=== PATIENT | male | born 1970 | race Caucasian/White ===

== ENCOUNTER 2018-05-07 18:12 | Emergency (ER) | payer BC ==
[2018-05-07] MEDS ORDERED: IPRATROPIUM/ALBUTEROL (0.5MG/3MG) NEB INH ONE (18:23)
[2018-05-07] MEDS ORDERED: PREDNISONE 20 MG TAB PO ONE (18:23)
--- NOTE | 2018-05-07 18:29 | Emergency Department Record ---
History of Present Illness - General Chief Complaint: Difficulty Breathing Stated Complaint: VANNESA Time Seen by Provider: 05/07/18 18:23 Source: Patient Mode of Arrival: Ambulatory Limitations: No limitations - History of Present Illness Initial Comments: 47 yo male presents to ED for evaluation of diffuse wheezing and shortness of breath symptoms that began approximately 2 months ago. Patient denies previous history of asthma or COPD, denies previous smoking history. Patient does report that he saw a [facility] in [place] who referred him for CT imaging of the chest that was overall normal. Patient reports that he was started on albuterol and Prednsione which improved his symptoms, however they have returned and he is nearly out of his proair. Patient denies fevers, chills, or productive cough symptoms. 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 Patient does wear a respirator mask while at work. MD Complaint: Shortness of breath Onset/Timin -: Month(s) Severity: Moderate Consistency: Intermittent Improves With: Bronchodilators Worsens With: Nothing Associated Symptoms: Denies other symptoms Treatments Prior to Arrival: Bronchodilator - Related Data Home Oxygen Therapy: No Home Medications Medication Instructions Recorded Confirmed Last Taken Albuterol Sulfate [Proair Hfa] 1 - 2 puff IH .EVERY 4-6 HOURS PRN 05/07/1805/07 1 Day Ago ~05/06/18 Previous Rx's Medication Instructions Recorded Albuterol Sulfate [Proair Hfa] 1 - 2 puff IH .EVERY 4-6 HOURS PRN 05/07/18 #1 inhaler Prednisone [Prednisone 20Mg] 20 mg PO TID #12 tab 05/07/18 Allergies Allergy/AdvReac Type Severity Reaction Status Date / Time No Known Drug Allergies Allergy Verified 05/07/18 18:28 Review of Systems Constitutional: Denies: Chills, Fever, Malaise, Night sweats Eyes: Denies: Eye discharge, Eye pain ENT: Denies: Congestion, Ear pain, Epistaxis Respiratory: Reports: Cough, Dyspnea, Wheezes Cardiovascular: Reports: Dyspnea on exertion. Denies: Chest pain, Palpitations Endocrine: Denies: Fatigue, Heat or cold intolerance Gastrointestinal: Denies: Abdominal pain, Nausea, Vomiting Genitourinary: Denies: Incontinence, Retention Musculoskeletal: Denies: Arthralgia, Back pain, Gout, Joint swelling Skin: Denies: Bruising, Change in color Neurological: Denies: Abnormal gait, Confusion, Headache, Tingling, Tremors Psychiatric: Denies: Anxiety Hematological/Lymphatic: Denies: Anemia, Blood Clots Physical Exam - General General Appearance: Alert, Oriented x3, Cooperative, Moderate distress Limitations: No limitations - Head Head exam: Atraumatic, Normocephalic, Normal inspection Head exam detail: negative: Abrasion, Contusion, Betancur's sign, General tenderness, Hematoma, Laceration - Eye Eye exam: Normal appearance. negative: Conjunctival injection, Periorbital swelling, Periorbital tenderness, Scleral icterus - ENT Ear exam: negative: Auricular hematoma, Auricular trauma Nasal Exam: negative: Active bleeding, Discharge, Dried blood, Foreign body Mouth exam: negative: Drooling, Laceration, Muffled voice, Tongue elevation - Neck Neck exam: Normal inspection. negative: Meningismus, Tenderness - Respiratory Respiratory exam: Decreased breath sounds, Prolonged expiratory, Wheezes. negative: Rhonchi, Stridor - Cardiovascular Cardiovascular Exam: Regular rate, Normal rhythm, Normal heart sounds - GI/Abdominal GI/Abdominal exam: Soft. negative: Distended, Rebound, Rigid, Tenderness - Rectal Rectal exam: Deferred - exam: Deferred - Extremities Extremities exam: Normal inspection. negative: Pedal edema, Tenderness - Back Back exam: Denies: CVA tenderness (R), CVA tenderness (L) - Neurological Neurological exam: Alert, Normal gait, Oriented X3 - Psychiatric Psychiatric exam: Normal affect, Normal mood - Skin Skin exam: negative: Abrasion Type of lesion: negative: abrasion Course Reviewed previous CT imaging of the chest from 03/16/18: Mild bronchial thickening No infiltrates 3 mm sub-pleural nodule - Reevaluation(s) Reevaluation #1: 05/07/18 18:45 Patient was reassessed following duoneb administration, symptoms are greatly improved. Will administer albuterol nebulized treatment and reassess. Reevaluation #2: 05/07/18 19:17 Patient was re-evaluated, reports that he is breathing symptoms are greatly improved. Will provide Rx for inhaler as well as prednisone for 5 days. Will also provide a referral for top polisher for further evaluation. Patient agrees with the plan of care as discussed. Disposition Disposition: Discharge Clinical Impression: Bronchospasm Disposition: Home, Self-Care Condition: (2) Stable Instructions: Bronchospasm (ED) Additional Instructions: Return to ED if your symptoms worsen or if you have any concerns. Prednisone and Pro-air as directed. Follow-up with in 5-7 days as directed. Prescriptions: Albuterol Sulfate [Proair Hfa] 1 - 2 puff IH .EVERY 4-6 HOURS PRN #1 inhaler PRN Reason: Difficulty In Breathing Prednisone [Prednisone 20Mg] 20 mg PO TID #12 tab Referrals: CLARITA SHARPE [MEDICAL DOCTOR] - Forms: Patient Portal Access Time of Disposition: 19:19 Quality - Quality Measures Quality Measures: N/A - Blood Pressure Screening Does Patient Have Any of the Following: No Blood Pressure Classification: Hypertensive Reading Systolic Measurement: 121 Diastolic Measurement: 97 Screening for High Blood Pressure: < First Hypertensive BP, F/U Documented > [ G8950] First Hypertensive Follow-up Interventions: Referral to alternative/primary care provider.
[2018-05-07] MEDS ORDERED: ALBUTEROL SULFATE (0.083%) 2.5 MG/3 ML NEB INH ONE (18:45)
[2018-05-07] MEDS ORDERED: ALBUTEROL HFA 8 GM INHALER INH PRN (19:21)
== END 2018-05-07 19:24 | disposition home or self-care (01) ==
LOC: ER 18:12
DX: J98.01 Acute bronchospasm (principal); R06.00 Dyspnea, unspecified
CPT/HCPCS: 99283 ×2; 94640 ×3; 94664; J7512; J7613

== ENCOUNTER 2018-11-12 04:13 | Emergency (ER) | payer BC ==
[2018-11-12] MEDS ORDERED: 0.9 % SODIUM CHLORIDE 1,000 ML BAG IV ONE (04:37)
[2018-11-12 04:47] LABS: ABSOLUTE NEUTROPHIL COUNT 6.88; BASO % 0.4 % (0-6); EOS % 3.9 % (0-6); GRAN % 69.1 % (47-80); HEMATOCRIT 48.1 % (42.0-52.0); HEMOGLOBIN 16.5 gm/dl (14.0-18.0); LYMPH % 16.2 % (16-45); MEAN CELL VOLUME 88.6 fl (81-97); MEAN CORPUSCULAR HEMOGLOBIN 30.4 pg (27-33); MEAN CORPUSCULAR HGB CONC 34.3 g/dl (32-36); MEAN PLATELET VOLUME 9.3 fl (7.4-10.4); MONO % 10.4 % (0-9); PLATELET COUNT 256 K/uL (130-400); RED BLOOD COUNT 5.43 M/uL (4.40-5.70); RED CELL DISTRIBUTION WIDTH 12.2 % (11.5-14.5)
[2018-11-12 05:00] LABS: BLOOD UREA NITROGEN 13 mg/dL (6-20); EST GLOMERULAR FILTRATION RATE > 60 mL/min
[2018-11-12 05:01] LABS: LIPASE 21 U/L (13-60); TOTAL PROTEIN 7.5 g/dL (6.6-8.7)
[2018-11-12 05:03] LABS: GLUCOSE,RANDOM 116 mg/dL (74-109)
[2018-11-12 05:05] LABS: ALT/SGPT 19 U/L (<41)
[2018-11-12 05:06] LABS: ALBUMIN 4.8 g/dL (4.0-5.0); ALKALINE PHOSPHATASE 95 U/L (40-129); AST/SGOT 17 U/L (10.0-50.0); BILIRUBIN,DIRECT < 0.2 mg/dL (0-0.3)
[2018-11-12] MEDS ORDERED: KETOROLAC 30 MG/ML VIAL IVP ONE (05:35)
--- NOTE | 2018-11-12 05:35 | Emergency Department Record ---
History of Present Illness - General Chief Complaint: Abdominal Pain Stated Complaint: ABDOMINAL PAIN Time Seen by Provider: 11/12/18 04:28 Source: Patient Mode of Arrival: Ambulatory Limitations: No limitations - History of Present Illness Initial Comments: pt has llq pain for a day. no n/v/c/d. no problems urimating Complaint: Abdominal pain Onset/Timin -: Days(s) Location: Other Radiation: None Migration to: No migration Severity scale (1-10): 8 Quality: Sharp Consistency: Intermittent, Getting worse Improves With: Nothing Worsens With: Movement Associated Symptoms: Denies other symptoms - Related Data Home Medications Medication Instructions Recorded Confirmed Last Taken Fluticasone Propion/Salmeterol 1 puff INH BID 11/12/18 11/12/18 Unknown [Fluticasone-Salmeterol 500-50] Previous Rx's Medication Instructions Recorded Ciprofloxacin HCl [Cipro] 500 mg PO Q12HR #14 tablet 11/12/18 Metronidazole [Flagyl] 500 mg PO Q8H #20 tablet 11/12/18 Allergies Allergy/AdvReac Type Severity Reaction Status Date / Time No Known Drug Allergies Allergy Verified 11/12/18 04:21 Travel Screening - Travel/Exposure Within Last 30 Days Have you traveled within the last 30 days?: No - Travel/Exposure Within Last Year Have you traveled outside the [place] in the last year?: No - Additonal Travel Details Have you been exposed to anyone with a communicable illness?: No - Travel Symptoms Symptom Screening: None Review of Systems Reviewed: No additional complaints except as noted below Constitutional: Reports: As per HPI. Denies: Chills, Fever, Malaise, Night sweats, Weakness, Weight change Eyes: Reports: As per HPI. Denies: Eye discharge, Eye pain, Photophobia, Vision change ENT: Reports: As per HPI. Denies: Congestion, Dental pain, Ear pain, Epistaxis, Hearing loss, Throat pain Respiratory: Reports: As per HPI. Denies: Cough, Dyspnea, Hemoptysis, Stridor, Wheezes Cardiovascular: Reports: As per HPI. Denies: Arrhythmia, Chest pain, Dyspnea on exertion, Edema, Murmurs, Orthopnea, Palpitations, Paroxysmal nocturnal dyspnea, Rheumatic Fever, Syncope Endocrine: Reports: As per HPI. Denies: Fatigue, Heat or cold intolerance, Polydipsia, Polyuria Gastrointestinal: Reports: As per HPI, Abdominal pain. Denies: Constipation, Diarrhea, Hematemesis, Hematochezia, Melena, Nausea, Vomiting Genitourinary: Reports: As per HPI. Denies: Dysuria, Frequency, Hematuria, Incontinence, Retention, Testicular pain, Testicular mass, Urgency Musculoskeletal: Reports: As per HPI. Denies: Arthralgia, Back pain, Gout, Joint swelling, Myalgia, Neck pain Skin: Reports: As per HPI. Denies: Bruising, Change in color, Change in hair/nails, Lesions, Pruritus, Rash Neurological: Reports: As per HPI. Denies: Abnormal gait, Confusion, Headache, Numbness, Paresthesias, Seizure, Tingling, Tremors, Vertigo, Weakness Psychiatric: Reports: As per HPI. Denies: Anxiety, Auditory hallucinations, Depression, Homicidal thoughts, Suicidal thoughts, Visual hallucinations Hematological/Lymphatic: Reports: As per HPI. Denies: Anemia, Blood Clots, Easy bleeding, Easy bruising, Swollen glands Past Medical History - SOCIAL HISTORY Smoking Status: Former smoker Alcohol Use: Occasional Drug Use: None - RESPIRATORY Hx Respiratory Disorders: Yes Hx Bronchitis: Yes Comment:: never before - CARDIOVASCULAR Hx Cardio Disorders: Yes Hx Hypotension: Yes - NEURO Hx Neuro Disorders: No - GI Hx GI Disorders: No - Hx Genitourinary Disorders: No - ENDOCRINE Hx Endocrine Disorders: No - MUSCULOSKELETAL Hx Musculoskeletal Disorders: No - PSYCH Hx Psych Problems: No - HEMATOLOGY/ONCOLOGY Hx Hematology/Oncology Disorders: No Family Medical History Any Significant Family History?: No Physical Exam - General General Appearance: Alert, Oriented x3, Cooperative, Mild distress - Head Head exam: Normal inspection - Eye Eye exam: Normal appearance, PERRL, EOMI Pupils: Normal accommodation - ENT ENT exam: Normal exam, Mucous membranes moist, Normal external ear exam, Normal orophraynx Ear exam: Normal external inspection. negative: External canal tenderness Nasal Exam: Normal inspection. negative: Discharge, Sinus tenderness Mouth exam: Normal external inspection, Tongue normal Teeth exam: Normal inspection. negative: Dental caries Throat exam: Normal inspection. negative: Tonsillar erythema, Tonsillar exudate - Neck Neck exam: Normal inspection, Full ROM. negative: Tenderness - Respiratory Respiratory exam: Normal lung sounds bilaterally. negative: Respiratory distress - Cardiovascular Cardiovascular Exam: Regular rate, Normal rhythm, Normal heart sounds - GI/Abdominal GI/Abdominal exam: Soft, Normal bowel sounds, Tenderness (llq) - Rectal Rectal exam: Deferred - exam: Deferred - Extremities Extremities exam: Normal inspection, Full ROM, Normal capillary refill. negativ e: Tenderness - Back Back exam: Reports: Normal inspection, Full ROM. Denies: Muscle spasm, Rash noted, Tenderness - Neurological Neurological exam: Alert, Normal gait, Oriented X3, Reflexes normal - Psychiatric Psychiatric exam: Normal affect, Normal mood - Skin Skin exam: Dry, Intact, Normal color, Warm Course Vital Signs 11/12/18 04:18 Temperature 98.5 F Pulse Rate [ 75 Pulse Ox Probe] Respiratory 20 Rate Blood Pressure 124/84 [Left Arm] Pulse Ox 97 Medical Decision Making - Lab Data Result diagrams: 11/12/18 04:30 11/12/18 04:30 Lab Results 11/12/18 11/12/18 Range/Units 04:30 04:30 WBC 10.0 (4.2-12.2) K/uL RBC 5.43 (4.40-5.70) M/uL Hgb 16.5 (14.0-18.0) gm/dl Hct 48.1 (42.0-52.0) % MCV 88.6 (81-97) fl MCH 30.4 (27-33) pg MCHC 34.3 (32-36) g/dl RDW 12.2 (11.5-14.5) % Plt Count 256 (130-400) K/uL MPV 9.3 (7.4-10.4) fl Gran % 69.1 (47-80) % Lymphocytes % 16.2 (16-45) % Monocytes % 10.4 H (0-9) % Eosinophils % 3.9 (0-6) % Basophils % 0.4 (0-6) % Absolute Neutrophils 6.88 Sodium 140 (136-145) mmol/L Potassium 4.4 (3.4-4.5) mmol/L Chloride 100 (98-107) mmol/L Carbon Dioxide 28.0 (22-29) mmol/L Anion Gap 12.0 (7-16) BUN 13 (6-20) mg/dL Creatinine 1.0 (0.7-1.2) mg/dL Estimated GFR > 60 mL/min Random Glucose 116 H (74-109) mg/dL Calcium 10.2 H (8.6-10.0) mg/dL Total Bilirubin 0.40 (0.2-1.0) mg/dL Direct Bilirubin < 0.2 (0-0.3) mg/dL AST 17 (10.0-50.0) U/L ALT 19 (<41) U/L Alkaline Phosphatase 95 (40-129) U/L Total Protein 7.5 (6.6-8.7) g/dL Albumin 4.8 (4.0-5.0) g/dL Lipase 21 (13-60) U/L Disposition Disposition: Discharge Clinical Impression: Diverticulitis large intestine Qualifiers: Diverticulitis bleeding: without bleeding Diverticulitis complication: without perforation or abscess Qualified Code(s): K57.32 - Diverticulitis of large intestine without perforation or abscess without bleeding Disposition: Home, Self-Care Condition: (1) Good Instructions: Diverticulitis (ED) Additional Instructions: follow up with family doctor. return sooner if worse. soft diet. push fluids Prescriptions: Ciprofloxacin HCl [Cipro] 500 mg PO Q12HR #14 tablet Metronidazole [Flagyl] 500 mg PO Q8H #20 tablet Quality - Quality Measures Quality Measures: N/A - Blood Pressure Screening Does Patient Have Any of the Following: No Blood Pressure Classification: Pre-Hypertensive BP Reading Systolic Measurement: 124 Diastolic Measurement: 84 Screening for High Blood Pressure: < Pre-Hypertensive BP, F/U Documented > [G8950] Pre-Hypertensive Follow-up Interventions: Follow-up with rescreen every year.
[2018-11-12 05:36] LABS: URINE APPEARANCE CLEAR; URINE BILIRUBIN NEGATIVE (NEGATIVE); URINE BLOOD NEGATIVE (NEGATIVE); URINE COLOR YELLOW; URINE GLUCOSE (UA) NEGATIVE (NEGATIVE); URINE KETONE NEGATIVE (NEGATIVE); URINE LEUKOCYTE ESTERASE NEGATIVE (NEGATIVE); URINE NITRITE NEGATIVE (NEGATIVE); URINE PROTEIN NEGATIVE (NEGATIVE); URINE UROBILINOGEN 0.2 E.U./dL (0.20 - 1.00)
[2018-11-12] MEDS ORDERED: METRONIDAZOLE 250 MG TABLET PO ONE (05:36)
[2018-11-12] MEDS ORDERED: CIPROFLOXACIN HCL 500 MG TABLET PO ONE (05:36)
--- NOTE | 2018-11-14 11:10 | CT SCAN REPORT ---
EXAM: CT OF THE ABDOMEN AND PELVIS WITHOUT CONTRAST HISTORY: LOWER ABDOMINAL PAIN AND TENDERNESS. TECHNIQUE: Routine helical CT examination of the abdomen and pelvis was performed without oral or intravenous contrast administration. Lack of oral and IV contrast utilization limits evaluation of the bowel and solid viscera respectively. Comparison: None. FINDINGS: There is minor linear scarring versus atelectasis within the lingula. The visualized lung bases are otherwise clear. No pleural or pericardial effusion. The heart is not enlarged. The liver, spleen, pancreas, adrenal glands, and kidneys/ureters are normal in appearance. The gallbladder is unremarkable and no biliary ductal dilatation is seen. No intraabdominal nor retroperitoneal lymphadenopathy. Minimal calcification of the distal abdominal aorta. No aneurysm of the abdominal aorta nor iliac arteries. No pelvic mass, lymphadenopathy, or free pelvic fluid. No intrinsic urinary bladder abnormality. No evidence of appendicitis. Occasional diverticula suggested within the left colon. There is probable wall thickening of the junction of the descending and sigmoid portions of the colon with associated mild to moderate mesenteric fat stranding. This appears centered about a mildly prominent diverticulum. Acute diverticulitis is favored. Epiploic appendagitis is less likely. No evidence of abscess nor extraluminal air. The bowel is otherwise unremarkable. No lytic or blastic bone lesion. IMPRESSION: 1. OCCASIONAL DIVERTICULA WITHIN THE LEFT COLON. 2. PROBABLE MILD WALL THICKENING OF THE JUNCTION OF THE DESCENDING AND SIGMOID PORTIONS OF THE COLON WITH ASSOCIATED ADJACENT MESENTERIC FAT STRANDING. THIS APPEARS CENTERED ABOUT A MILDLY PROMINENT DIVERTICULUM AND ACUTE DIVERTICULITIS IS THE MOST LIKELY ETIOLOGY. EPIPLOIC APPENDAGITIS IS LESS LIKELY. NO EVIDENCE OF ABSCESS NOR EXTRALUMINAL AIR. JOB NUMBER: [id number] [facility]
== END 2018-11-12 05:50 | disposition home or self-care (01) ==
LOC: ER 04:13
DX: K57.32 Diverticulitis of large intestine without perforation or abscess without bleeding (principal); I10 Essential (primary) hypertension; Z87.891 Personal history of nicotine dependence
CPT/HCPCS: 74176; 80048; 80076; 81003; 83690; 85025; 96374; 99284; J1885; J7030